=== PATIENT | male | born 1950 | race Caucasian/White ===

== ENCOUNTER → 2017-01-27 | Outpatient (CLI) | payer MEDICARE ==
[~2017-01-27] MED LIST: CHOL1CHW5 CHEW; CHOLESTEROL MED; FINA1TAB2 PO; FINA5TAB2 PO; SIMV20TA PO; VARE1 PO; VITATAB11
== END ==
LOC: PLAB 14:46
PROVIDERS: ATTEND Family Medicine
DX: R97.20 Elevated prostate specific antigen [PSA] (principal)
CPT/HCPCS: 36415; 84153

== ENCOUNTER → 2017-03-17 | Outpatient (CLI) | payer MEDICARE ==
[2017-03-17 13:22] LABS: AUTOMATED NEUTROPHIL # 4.5 TH/MM3 (1.8-7.7); BASOPHIL % 0.8 % (0.0-2.0); EOSINOPHIL # 0.1 TH/MM3 (0-0.4); EOSINOPHIL % 1.3 % (0.0-4.0); HEMATOCRIT 44.4 % (39.0-51.0); HEMO FLAGS DIFF FINAL; LYMPH % 19.5 % (9.0-44.0); LYMPHOCYTE # 1.2 TH/MM3 (1.0-4.8); MEAN CELL VOLUME 95.4 FL (80.0-100.0); MEAN CORPUSCULAR HEMOGLOBIN 32.3 PG (27.0-34.0); MEAN CORPUSCULAR HGB CONC 33.8 % (32.0-36.0); MONO % 4.5 % (0.0-8.0); NEUT % 73.9 % (16.0-70.0); PLATELET COUNT 181 TH/MM3 (150-450); RED BLOOD COUNT 4.65 MIL/MM3 (4.50-5.90); RED CELL DISTRIBUTION WIDTH 13.5 % (11.6-17.2); WHITE BLOOD COUNT 6.1 TH/MM3 (4.0-11.0)
[2017-03-17 13:48] LABS: ALKALINE PHOSPHATASE 71 U/L (45-117); ALT (GPT) 67 U/L (12-78); ANION GAP 7 MEQ/L (5-15); AST (GOT) 40 U/L (15-37); BICARBONATE 27.8 MEQ/L (21.0-32.0); BLOOD UREA NITROGEN 12 MG/DL (7-18); CHLORIDE 107 MEQ/L (98-107); GAMMA GT 50 U/L (15-85); GLOMERULAR FILTRATION RATE 70 ML/MIN (>89); GLUCOSE,FASTING 102 MG/DL (74-99); HDL CHOLESTEROL 121.6 MG/DL (40.0-60.0); LDL CHOLESTEROL 60 MG/DL (0-99); POTASSIUM 3.8 MEQ/L (3.5-5.1); SODIUM (NA) 142 MEQ/L (136-145); TOTAL BILIRUBIN ADULT 0.7 MG/DL (0.2-1.0)
[2017-03-17 17:51] LABS: HEMOGLOBIN A1a 1.1 %; HEMOGLOBIN A1b 1.4 %; HEMOGLOBIN Ao 85.1 %; HEMOGLOBIN LA1C 2.3 %; HEMOGLOBIN P3 3.8 %
== END ==
LOC: PLAB 09:58
PROVIDERS: ATTEND Family Medicine
DX: E78.5 Hyperlipidemia, unspecified (principal); K21.9 Gastro-esophageal reflux disease without esophagitis; R63.4 Abnormal weight loss; R73.01 Impaired fasting glucose; R94.5 Abnormal results of liver function studies
CPT/HCPCS: 36415; 80053; 80061; 82977; 83036; 84443; 85025

== ENCOUNTER 2017-04-07 10:05 | Emergency (ER) | payer MEDICARE, OTHER ==
[~2017-04-07] VITALS: Ht 177.8 cm; Wt 65.8 kg
[~2017-04-07 10:05] MED LIST changes: -CHOL1CHW5 CHEW; -FINA5TAB2 PO; -SIMV20TA PO; -VITATAB11
[2017-04-07 10:22] VITALS: BP 125/82; PULSE 61; RESP 15; TEMP 98.9; O2SAT 98
[2017-04-07] MEDS ORDERED: SIMV20TA PO (10:27)
[2017-04-07] MEDS ORDERED: FINA5TAB2 PO (10:27)
[2017-04-07] MEDS ORDERED: VITATAB11 (10:27)
[2017-04-07] MEDS ORDERED: CHOL1CHW5 CHEW (10:27)
[2017-04-07 10:45] VITALS: RESP 17; O2SAT 98
[2017-04-07] MEDS ORDERED: PROPOFOL 200 MG/20 ML AMP IV ONE (10:45)
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
[2017-04-07 11:00] LABS: AUTOMATED NEUTROPHIL # 9.7 TH/MM3 (1.8-7.7); BASOPHIL % 0.3 % (0.0-2.0); EOSINOPHIL % 0.1 % (0.0-4.0); HEMATOCRIT 46.1 % (39.0-51.0); HEMO FLAGS DIFF FINAL; LYMPH % 6.6 % (9.0-44.0); LYMPHOCYTE # 0.7 TH/MM3 (1.0-4.8); MEAN CELL VOLUME 94.7 FL (80.0-100.0); MEAN CORPUSCULAR HEMOGLOBIN 32.6 PG (27.0-34.0); MEAN CORPUSCULAR HGB CONC 34.5 % (32.0-36.0); MONO % 3.6 % (0.0-8.0); NEUT % 89.4 % (16.0-70.0); PLATELET COUNT 200 TH/MM3 (150-450); RED BLOOD COUNT 4.87 MIL/MM3 (4.50-5.90); RED CELL DISTRIBUTION WIDTH 12.9 % (11.6-17.2); WHITE BLOOD COUNT 10.8 TH/MM3 (4.0-11.0)
[2017-04-07 11:01] VITALS: O2SAT 100
[2017-04-07 11:08] LABS: POTASSIUM 4.2 MEQ/L (3.5-5.1)
[2017-04-07 11:12] LABS: BICARBONATE 26.9 MEQ/L (21.0-32.0)
[2017-04-07 11:13] LABS: APTT (PATIENT) 26.8 SEC (24.3-30.1); INTERNATIONAL NORMALIZED RATIO 0.9 RATIO; PROTHROMBIN TIME - PATIENT 9.8 SEC (9.8-11.6)
[2017-04-07 12:02] VITALS: BP 152/75
== END 2017-04-07 12:12 | disposition home or self-care (01) ==
LOC: PHED 10:05
DX: K40.30 Unilateral inguinal hernia, with obstruction, without gangrene, not specified as recurrent (principal); N40.0 Benign prostatic hyperplasia without lower urinary tract symptoms; K21.9 Gastro-esophageal reflux disease without esophagitis; F17.210 Nicotine dependence, cigarettes, uncomplicated; X50.0XXA Overexertion from strenuous movement or load, initial encounter; Y93.9 Activity, unspecified; Y92.9 Unspecified place or not applicable; Y99.0 Civilian activity done for income or pay
CPT/HCPCS: 80048; 85025; 85610; 85730; 96374

== ENCOUNTER → 2017-05-11 | Day surgery (SDC) | payer MEDICARE ==
[~2017-05-11] MED LIST changes: +BUPIVACAINE/EPINEPHRINE 0.5% PF 30 ML VIAL ONE; +CHOL1CHW5 CHEW; -CHOLESTEROL MED; -FINA1TAB2 PO; +FINA5TAB2 PO; +KETOROLAC TROMETHAMINE 30 MG/ML (IVP) VIAL IV PUSH ONE; +LACTATED RINGER'S 1000 ML INJ 1,000 ML ONE; +MEPERIDINE HCL 50 MG/ML VIAL ONE; +ONDANSETRON HCL 4 MG/2 ML VIAL IV PUSH ONE; +PROPOFOL 200 MG/20 ML AMP IV ONE; +SIMV20TA PO; -VARE1 PO; +VITATAB11; +ceFAZolin 2 GM PREMIX 50 ML ONE
--- NOTE | 2017-05-11 12:24 | TN ---
cc: DANIELA MUNIZ M.D. DATE OF SURGERY: 05/11/2017 PREOPERATIVE DIAGNOSIS Symptomatic recurrent right inguinal hernia. POSTOPERATIVE DIAGNOSIS 1. Symptomatic recurrent right inguinal hernia. 2. Right femoral hernia. PROCEDURE PERFORMED Laparoscopic right inguinal hernia repair with mesh. SURGEON Daniela Muniz MD SOFT TILE SETTER Toñito Marinelli, MS III ANESTHESIA General LMA. COMPLICATIONS None. INDICATION FOR PROCEDURE Mr. Hodge is a pleasant 67-year-old gentleman who had a symptomatic recurrent right inguinal hernia. He underwent right inguinal hernia repair as a child. He had a symptomatic bulge. He lifted some heavy stuff and developed severe right groin pain requiring a trip to the emergency department. His hernia was reduced and he was advised to follow up with a surgeon. The patient was seen and evaluated in the office and offered elective repair. Risks and benefits of repair was discussed with him and he was agreeable. DETAILS OF PROCEDURE The patient was identified, brought to the operating room and placed supine on the operating table. After adequate general anesthesia was achieved with LMA the anterior abdomen and groin was prepped and draped in standard surgical fashion. Infraumbilical space was anesthetized with 0.25% Marcaine. Infraumbilical incision was made. Dissection was carried down to the anterior rectus fascia. Anterior rectus fascia was then incised vertically off the midline. Rectus muscle was then retracted laterally. Preperitoneal space was entered with blunt finger dissection. Blunt dissecting balloon was then inserted and insufflated with 20 pumps of air under direct vision in the preperitoneal space. Next, dissecting balloon was removed, balloon trocar inserted. Preperitoneal space was insufflated to 11 mmHg using CO2 gas. Next, two 5 mm trocars were placed in the lower midline under direct vision. Attention was first directed medially where Tyrone's ligament and pubic tubercle were identified. We immediately noted what appeared to be a direct hernia sac which was quite inferior. We went ahead and dissected out the cord structures and made a posterior window. We then redirected our attention back to the midline and confirmed this was a femoral hernia. The iliac vessels were carefully dissected and clearly seen. This hernia was superior and medial to the vessels. Using gentle traction the hernia sac was reduced out of the femoral space. Peritoneum and fatty tissue came out. This was then photographed. The defect was then photographed. Attention was now directed to repair. Repair was accomplished using piece of polypropylene mesh. Mesh was cut with a slit for the cord structures. It is placed through the posterior window behind the cord structures. The slit was then reapproximated using the tacking device. The mesh was then secured medially along Tyrone's ligament and pubic tubercle and superior along the posterior abdominal wall fascia. An onlay mesh was then placed over the first mesh in order to cover over the slit. This mesh was secured medially and laterally. With this the indirect, direct and femoral spaces were well covered by mesh with generous overlap. 0.25% Marcaine was injected in the operative field. The inferior border of the mesh was held down and the peritoneum was allowed to roll up over the mesh. All trocars were removed under direct vision. Anterior rectus fascia was repaired with 0 Vicryl in [id number]-[id number] fashion. Skin was closed with 4-0 Vicryl. The patient tolerated the procedure well, was awakened and brought to recovery in stable condition. MD ALICIA Trujillo/ROSALVA /12:04 PM /12:16 PM
== END | disposition home or self-care (01) ==
LOC: ESDC 08:26
PROVIDERS: ATTEND Surgery Trauma Surgery
DX: K40.91 Unilateral inguinal hernia, without obstruction or gangrene, recurrent (principal); K41.90 Unilateral femoral hernia, without obstruction or gangrene, not specified as recurrent
CPT/HCPCS: 00840; 49651; J0690; J1885; J2175; J2405; J3010; J7120; C1727; C1781

== ENCOUNTER → 2018-03-12 | Outpatient (CLI) | payer MEDICARE ==
[~2018-03-12] MED LIST changes: -BUPIVACAINE/EPINEPHRINE 0.5% PF 30 ML VIAL ONE; -KETOROLAC TROMETHAMINE 30 MG/ML (IVP) VIAL IV PUSH ONE; -LACTATED RINGER'S 1000 ML INJ 1,000 ML ONE; -MEPERIDINE HCL 50 MG/ML VIAL ONE; -ONDANSETRON HCL 4 MG/2 ML VIAL IV PUSH ONE; -PROPOFOL 200 MG/20 ML AMP IV ONE; -ceFAZolin 2 GM PREMIX 50 ML ONE
[2018-03-12 10:39] LABS: AUTOMATED NEUTROPHIL # 3.7 TH/MM3 (1.8-7.7); BASOPHIL # 0.1 TH/MM3 (0-0.2); BASOPHIL % 0.8 % (0.0-2.0); EOSINOPHIL # 0.1 TH/MM3 (0-0.4); EOSINOPHIL % 1.6 % (0.0-4.0); HEMATOCRIT 44.9 % (39.0-51.0); HEMOGLOBIN 15.4 GM/DL (13.0-17.0); LYMPH % 31.1 % (9.0-44.0); LYMPHOCYTE # 1.9 TH/MM3 (1.0-4.8); MEAN CELL VOLUME 96.5 FL (80.0-100.0); MEAN CORPUSCULAR HEMOGLOBIN 33.1 PG (27.0-34.0); MEAN CORPUSCULAR HGB CONC 34.3 % (32.0-36.0); MEAN PLATELET VOLUME 6.8 FL (7.0-11.0); MONOCYTE # 0.3 TH/MM3 (0-0.9); NEUT % 61.5 % (16.0-70.0); PLATELET COUNT 241 TH/MM3 (150-450); RED BLOOD COUNT 4.65 MIL/MM3 (4.50-5.90)
[2018-03-12 10:40] LABS: ALBUMIN 3.6 GM/DL (3.4-5.0); AST (GOT) 23 U/L (15-37); BICARBONATE 24.8 MEQ/L (21.0-32.0); BLOOD UREA NITROGEN 14 MG/DL (7-18); CALCIUM 8.8 MG/DL (8.5-10.1); CHLORIDE 112 MEQ/L (98-107); CREATININE 1.05 MG/DL (0.60-1.30); GLOMERULAR FILTRATION RATE 70 ML/MIN (>89); GLUCOSE,FASTING 85 MG/DL (74-99); SODIUM (NA) 144 MEQ/L (136-145)
[2018-03-12 10:41] LABS: ALT (GPT) 28 U/L (12-78); CHOLESTEROL 256 MG/DL (120-200)
[2018-03-12 10:51] LABS: ALKALINE PHOSPHATASE 70 U/L (45-117); CHOLESTEROL/ HDL RATIO 3.23 RATIO; HDL CHOLESTEROL 79.2 MG/DL (40.0-60.0); LDL CHOLESTEROL 156 MG/DL (0-99); TOTAL BILIRUBIN ADULT 0.4 MG/DL (0.2-1.0); TOTAL PROTEIN 6.8 GM/DL (6.4-8.2); TRIGLYCERIDES 106 MG/DL (42-150)
[2018-03-12 16:16] LABS: HEMOGLOBIN A1C 5.8 % (4.3-6.0)
== END ==
LOC: PLAB 06:41
PROVIDERS: ATTEND Family Medicine
DX: E78.5 Hyperlipidemia, unspecified (principal); R73.01 Impaired fasting glucose; R97.20 Elevated prostate specific antigen [PSA]; R63.4 Abnormal weight loss; F32.9 Major depressive disorder, single episode, unspecified
CPT/HCPCS: 36415; 80053; 80061; 83036; 84153; 84443; 85025